=== PATIENT | male | born 1960 | race Caucasian/White ===

== ENCOUNTER → 2018-07-07 11:32 | Outpatient (CLI) | payer OTHER ==
[2010-03-27 07:43] VITALS: BMI 28.4
--- NOTE | ~2018-07-07 | ST ---
PATIENT:CHAPO MORAN MEDICAL RECORD: [id number] SEX: M LOCATION:[facility] ORDER #: ADMISSION DATE: 07/07/18 AGE OF PATIENT: 58 REFERRING PHYSICIAN: INTERPRETING PHYSICIAN: GABBY DA SILVA MD DATE OF SERVICE: 07/07/2018 PROCEDURE: Nuclear stress test. INDICATIONS: Angina, abnormal ECG, coronary artery disease, hypertension, hyperlipidemia. The patient was exercised on standard Real protocol for 5 minutes 30 seconds, terminated due to achieving max target heart rate response with 26 mCi of sestamibi injected at peak stress, 8 mCi were used previously for rest images. FINDINGS: Gated SPECT reveals preserved ejection fraction at 67% with good wall motioning and thickening and brightening throughout all segments. SPECT imaging: Cardiolite was used as myocardial perfusion agent. There is reversibility inferiorly and laterally. This includes the basal, mid, apical, inferior segments as well as apical, lateral, mid lateral, and basal lateral segments. The degree of reversibility is mild. The amount of myocardium involved is moderate to large. OVERALL IMPRESSION: This is an abnormal nuclear stress test, [id number] amount of myocardium, at risk with inducible ischemia, with ejection fraction preserved at 67%. Would proceed with coronary angiography as a followup study. TRANSINT:[id number] Voice Confirmation ID: [id number] DOCUMENT ID: [id number] GABBY DA SILVA MD CC: DEVEN ALFONSO [id number] DICTATION DATE: 07/07/18 170 EMBLEM FUSER TENDER: 07/08/18 0102 DEP CLI 07/07/18 [place] [id number] [place] [id number]
== END | disposition home or self-care (01) ==
LOC: D.HCCARDIO 08:30
PROVIDERS: ATTEND Internal Medicine Interventional Cardiology
DX: I25.10 Atherosclerotic heart disease of native coronary artery without angina pectoris (principal); R93.89 Abnormal findings on diagnostic imaging of other specified body structures; I10 Essential (primary) hypertension; E78.5 Hyperlipidemia, unspecified

== ENCOUNTER 2018-07-21 07:24 | Outpatient (CLI) | payer OTHER ==
--- NOTE | ~2018-07-21 | HEMODYNAMI ---
PATIENT:CHAPO MORAN MEDICAL RECORD: [id number] : 56 LOCATION:[facility] ADMISSION DATE: 07/21/18 Generatedon:07/21/20189:33 Patient name: CHAPO MORAN Patient #: [id number] SSN: : 1960 Date of study: 07/21/2018 Page: Of Hemodynamic Procedure Report Patient Data Patient Demographics Procedure consent was obtained First Name: CHAPO Gender: Male Last Name: LUISA : 1960 [facility] Initial: KATERYNA Age: 58 year(s) Patient #: [id number] Race: Unknown Additional ID: [id number] Contact details Address: [address] [place] [address] State: [place] City: [place] Zip code: [address] Past Medical History Allergies Allergen Reaction Date Comments Reported Other allergy 07/21/2018 iodine Admission Admission Data Admission Date: 07/21/2018 Admission Time: 7:24 Admit Source: Other Lab Results Lab Result Date: 07/21/2018 Lab Result Time: 7:50 Biochemistry Name Units Result Min Max BUN mg/dl 23 --(----)-* 7 18 Creatinine mg/dl 1.1 --(--*-)-- 0.6 1.3 CBC Name Units Result Min Max Hematocrit % 43.7 --(*---)-- 42 54 Hemoglobin g/dl 14.9 --(-*--)-- 13.5 17.5 Procedure Procedure Types Cath Procedure Diagnostic Procedure LHC LHC w/Coronaries FFR/IVUS Intra-Coronary IVUS Initial Procedure Description Procedure Date Procedure Date: 07/21/2018 Procedure Start Time: 9:18 Procedure End Time: 9:32 Procedure Staff Name Function Diego Terry MD Performing Physician Zeeshan Paz RT Monitor Beau Contreras RN Nurse Donna Lee RT Scrub Procedure Data Cath Procedure Fluoroscopy Diagnostic fluoroscopy Total fluoroscopy Time: 4.8 time: 4.8 min min Diagnostic fluoroscopy Total fluoroscopy dose: 781 dose: 781 mGy mGy Contrast Material Contrast Material Type Amount (ml) Isovue 300 56 Entry Location Entry Primary Successful Side Size Upsize Upsize Entry Closure [place] ccessful Closure Location (Fr) 1 (Fr) 2 (Fr) Remarks Device Remarks Radial Right 6 Fr Mechanical artery Short Compression Femoral Right 6 Fr Exoseal artery Short Estimated blood loss: 10 ml Diagnostic catheters Device Type Used For End Catheter Placement DIAGNOSTIC [place] 110cm 5 Procedure Fr catheter ([id number]) Procedure Complications No complications Procedure Medications Medication Administration Route Dosage Oxygen etCO2 Nasal cannula 2 l/min Lidocaine 2% added to field 20 Heparin Flush Bag added to field 2 bags (1000units/500ml NS) 0.9% NaCl I.V. 100 ml/hr Versed I.V. 2 mg Fentanyl I.V. 100 mcg Radial Cocktail I.A. 1 syringe (Verapomil 2mg/Nitro 400mcg/Heparin 1500units) Versed I.V. 0.5 mg Hemodynamics Rest HGB: 14.9 (g/dl) Heart Rate: 67 (bpm) Snapshots Pre Cath Intra NCS Post Cath Vital Signs Time Heart Resp SPO2 etCO2 NIBP (mmHg) Rhythm Pain Sedation Rate (ipm) (%) (mmHg) Status Level (bpm) 9:14:18 68 13 95 36.8 140/89(108) NSR 0 (11) 10(A) , No pain 9:18:30 66 12 93 41.3 137/82(105) NSR 0 (11) 10(A) , No pain 9:22:38 83 14 95 39.1 121/78(94) NSR 0 (11) 9(A) , No pain 9:26:46 81 13 94 40.6 129/74(99) NSR 0 (11) 9(A) , No pain 9:30:54 76 16 94 39.8 127/79(94) NSR 0 (11) 10(A) , No pain Medications Time Medication Route Dose Verified Delivered Reason Notes Effectiveness by by 9:15:47 Oxygen etCO2 2 l/min Diego Yanez used for Nasal Harrison Contreras tracer lathe set up operator cannula 9:15:54 Lidocaine 2% added 20ml Diego Cortez for local to vial Harrison Terry MD anesthetic field 9:15:59 Heparin Flush added 2 bags Diego Cortez used for Bag to Harrison Terry MD procedure (1000units/500ml field NS) 9:16:07 0.9% NaCl I.V. 100 Diego Yanez Per ml/hr Harrison Contreras RN physician 9:16:16 Versed I.V. 2 mg Diego Yanez for sedation Harrison Contreras RN 9:16:21 Fentanyl I.V. 100 mcg Diego Yanez for sedation Harrison Contreras RN 9:18:27 Radial Cocktail I.A. 1 Diego Cortez for (Verapomil syringe Harrison Terry MD vasodilation 2mg/Nitro 400mcg/Heparin 1500units) 9:27:59 Versed I.V. 0.5 mg Diego Cortez for sedation Harrison Terry MD Procedure Log Time Note 8:35:19 Informed consent obtained and on chart 8:35:22 Admit Source: Other 8:35:26 Beau Contreras RN sent for patient. Start room use. 8:35:31 Diagnostic Cath status Elective 8:35:32 Time tracking: Regular hours (M-F 7:00 - 5:00) 8:35:35 Plan of Care:Hemodynamics will remain stable., Cardiac rhythm will remain stable., Comfort level will be maintained., Respiratory function will remain adequate., Patient/ family verbilizes understanding of procedure., Procedure tolerated without complication., Recovers from procedure without complications.. 8:38:12 Lab Result : BUN 23 mg/dl 8:38:12 Lab Result : Creatinine 1.1 mg/dl 8:38:12 Lab Result : Hemoglobin 14.9 g/dl 8:38:12 Lab Result : Hematocrit 43.7 % 8:38:14 Lab results completed and on chart. 8:47:15 Patient received from Pre/Post Procedure Room to CCL 2 Alert and oriented. Tansferred to table in Supine position. 8:47:17 Warm blankets applied, and michelle hugger turned on for patient comfort. 8:47:17 Correct patient and procedure confirmed by team. 8:47:18 ECG and BP/O2 sat monitors applied to patient. 8:47:20 Pre-procedure instructions explained to patient. 8:47:20 Pre-op teaching completed and patient verbalized understanding. 8:47:22 Family in waiting room. 9:13:11 Vital chart was started 9:13:12 Baseline sample Acquired. 9:13:15 Rhythm: sinus rhythm 9:13:37 Full Disclosure recording started 9:13:48 H&P Date Dictated: 07/02/2018 Within 30 days and on chart., H&P Addendum completed by physician on day of procedure. (MUST COMPLETE FOR ALL OUTPATIENTS). 9:14:02 Patient NPO since Midnight. 9:14:11 Patient allergic to Other allergyiodine 9:14:12 Is the patient allergic to Iodine/contrast media? Yes. 9:14:13 Was the patient premedicated? Yes 9:14:14 Is patient on blood thinner?Yes 9:14:18 ACC The patient was administered the following blood thiners within the last 24 hours: ACCPlavix 9:14:19 Patient diabetic? No. 9:14:21 Previous problem with sedation/anesthesia? No ? 9:14:22 Snore? Yes 9:14:23 Sleep apnea? No 9:14:27 Opens mouth fully? Yes 9:14:28 Sticks out tongue? Yes 9:14:30 Airway obstruction? No ? 9:14:31 Dentures? No ? 9:14:35 Pre procedure: right dorsailis pedis pulse 2+ Normal; easily identifiable; not easily obliterated 9:14:37 Modified Mario's test Ulnar < 7 seconds 9:14:38 Patient pain scale 0/10 ?. 9:14:46 IV left hand D/C'd due to infiltration. 9:14:55 IV Extension Set opened to sterile field. 9:14:56 IV CATHETER 22g opened to sterile field. 9:15:06 IV started by Beau Contreras RN inright antecubital with a 22 gauge IV catheter with 0.9% NaCl at KVO. 9:15:10 Right Radial & Right Groin area was prepped with chlora-prep and draped in sterile fashion 9:15:11 Alarms reviewed by R. N. 9:15:11 Sharps counted by scrub and verified by R.N. 9:15:13 Use device set Radial Dx or PCI 9:15:14 ACIST Syringe (42917) opened to sterile field. 9:15:15 Medline Cath Pack ([id number]) opened to sterile field. 9:15:15 Bag Decanter (2002) opened to sterile field. 9:15:16 DIAGNOSTIC WIRE .035 260cm J wire (251765) opened to sterile field. 9:15:16 ACIST Hand Control (79270) opened to sterile field. 9:15:17 ACIST Manifold (37742) opened to sterile field. 9:15:17 Tegaderm 4 x 4 (1626W) opened to sterile field. 9:15:17 MBrace Wrist Support ([id number]) opened to sterile field. 9:15:18 SHEATH 6FR Slender (82-1060) opened to sterile field. 9:15: Physician arrived 9:: --------ALL STOP TIME OUT------ :: Final Timeout: patient, procedure, and site verified with staff and physician. All members of the team are in agreement. 9:15:29 Right Radial & Right Groin site verified by team. 9:15:31 Maximum allowable Isovue 300 dose 300ml. Physician notified. (300ml for normal creatinines. For patients with creatinine of 1.7 or higher multiply weight(kg) x 5 divided by creatinine.) 9:15:34 Fire Safety Assessment: A--An alcohol-based skin anteseptic being used preoperatively., C--Open oxygen or nitrous oxide is being used., D--An ESU, laser, or fiber-optic light is being used. 9:15:36 Physical assessment completed. ASA score P 2 - A patient with mild systemic disease as per Diego Terry MD. 9:15:39 Sedation plan: IV Moderate Sedation Medication:Versed, Fentanyl 9:15:47 Oxygen 2 l/min etCO2 Nasal cannula was administered by Beau Contreras RN; used for procedure; 9:15:54 Lidocaine 2% 20ml vial added to field was administered by Diego Terry MD; for local anesthetic; 9:15:59 Heparin Flush Bag (1000units/500ml NS) 2 bags added to field was administered by Diego Terry MD; used for procedure; 9:16:07 0.9% NaCl 100 ml/hr I.V. was administered by Beau Contreras RN; Per physician; 9:16:16 Versed 2 mg I.V. was administered by Beau Contreras RN; for sedation; 9:16:21 Fentanyl 100 mcg I.V. was administered by Beau Contreras RN; for sedation; 9:18:17 Procedure started. 9:18:21 Local anesthetic to right radial artery with Lidocaine 2% by Diego Terry MD.INITIAL ACCESS ONLY 9:18:27 Radial Cocktail (Verapomil 2mg/Nitro 400mcg/Heparin 1500units) 1 syringe I.A. was administered by Diego Terry MD; for vasodilation; ::27 A 6 Fr Short sheath was inserted into the Right Radial artery 9:19:32 Zero performed for pressure channel P1 9:20:24 A DIAGNOSTIC [place] 110cm 5 Fr catheter (064649) was advanced over the wire and used for Procedure. 9::27 LV gram done using CALDERON 9:: Injector settings: Ml/sec: 5, Volume: 15, 9:20:30 LV hemodynamics recorded. 9:20:33 EF : 60 % 9:20:34 RCA angiography performed. 9:22:06 Catheter exchanged over wire. 9:22:17 GUIDE 6FR XBLAD 3.5 catheter ([id number]) opened to sterile field. 9:22:28 6 Fr XBLAD 3.5 guide catheter was inserted over the wire 9:23:23 SHEATH 6FR [place] (PDZ806) opened to sterile field. 9:23:56 Guide Catheter removed. unable to cannulate vessel. 9:24:04 MOVING TO FEMORAL APPROACH. 9:24:10 Local anesthetic to right femoral artery with Lidocaine 2% by Diego Terry MD.ADDITIONAL ACCESS 9:24:17 A 6 Fr Short sheath was inserted into the Right Femoral artery 9:24:24 6 Fr XBLAD 3.5 guide catheter was inserted over the wire 9:25:25 LCA angiography performed. 9:26:25 INFLATOR Merit BasixCompak (ZN0229) opened to sterile field. 9:26:26 CHOICE PT Extra Support 182cm wire (7287717V1) opened to sterile field. 9:26:26 [place] IVUS Catheter (64868N) opened to sterile field. 9:27:17 CHOICE PT ES wire advanced. 9:27:18 Wire advanced across lesion. 9:27:20 IVUS catheter advanced over wire. 9:27:59 Versed 0.5 mg I.V. was administered by Diego Terry MD; for sedation; 9:29:22 IVUS pass to LAD lesion performed. 9:: IVUS catheter removed over wire. 9:: Wire removed. 9:: Guide catheter removed. 9:29:30 TR BAND Standard (ITE19ZAU) opened to sterile field. 9:29:35 EXOSEAL 6Fr (EX600) opened to sterile field. 9::42 Sheath removed intact; hemostasis achieved with Exoseal to the Right Femoral artery. 9::47 Sheath removed intact; hemostasis achieved with Mechanical Compression to the Right Radial artery. 9:29:49 Procedure ended.(Physican Out) 9:31:05 Fluoroscopy time 04.80 minutes. 9:31:13 Contrast amount:Isovue 300 56ml. 9:: Fluoroscopy dose: 781 mGy 9:: Flurop Dose total: 781 9:31:30 Sharps counted by scrub and verified by R.N. 9:31:32 TR band inflated with 12cc of air. 9:31:33 Insertion/operative site no bleeding no hematoma. 9:31:36 Post-op/insertion site Right Femoral artery dressed using a 4 x 4 and Tegaderm. 9:31:39 Post right femoral artery:stable, soft, clean and dry 9:31:40 Post Procedure Pulses reassessed and unchanged 9::42 Post-procedure physical assessment completed. ASA score P 2 - A patient with mild systemic disease as per Diego Terry MD. 9:31:44 Post procedure rhythm: unchanged. 9:31:46 Estimated blood loss: 10 ml 9:31:47 Post procedure instruction explained to patient.Patient verbalizes understanding. 9:31:47 Patient needs reinforcement of post procedure teaching. 9:32:02 Procedure type changed to Cath procedure, Diagnostic procedure, LHC, LHC w/Coronaries, FFR/IVUS, Intra-Coronary IVUS Initial 9:32:29 Procedure and supply charges have been captured, reviewed, submitted and are correct. 9:32:31 Procedure Complication : No complications 9:32:33 Vital chart was stopped 9:32:33 See physician's report for complete and final results. 9:32:35 Report given to Pre/Post Procedure Room. 9:32:37 Patient transfered to Pre/Post Procedure Room with Stretcher. 9:32:39 Procedure ended. 9:32:39 Full Disclosure recording stopped 9:32:43 End room use (Document Last) Device Usage Item Name Manufacture Quantity Catalog Number Hospital Part Current Minim al Lot# / Charge Number Stock Stock Serial# Code IV Hospira 1 77985-56 323398 50347 405545 5 Extension Set IV CATHETER B. Silva 1 [id number] 645374 537834 465543 5 22g ACIST Acist 1 19867 835309 421336 166447 20 Syringe Medical (46173) Systems Inc Medline Medline 1 [id number] 717171 02962 681373 5 Cath Pack ([id number]) Bag Microtek 1 2001S 419564 00904 033536 5 Decanter Medical Inc. () DIAGNOSTIC St Darren 1 742758 564408 865600 577479 30 WIRE .035 260cm J wire (814997) ACIST Hand Acist 1 44553 604115 955245 727449 5 Control Medical (52658) Systems Inc ACIST Acist 1 65936 995496 362705 219047 5 Manifold Medical (39758) Systems Inc Tegaderm 4 3M 1 1626W 135890 091622 997831 5 x 4 (1626W) MBrace Advanced 1 140-0250-00 981924 82019 725524 5 Wrist Vascular Support Dynamics ([id number]) SHEATH 6FR Terumo 1 [id number] 550227 124160 495481 5 Slender (80-1060) DIAGNOSTIC Terumo 1 40-5013 662489 120277 229334 5 [place] 110cm 5 Fr catheter (795823) GUIDE 6FR Cardinal 1 [id number] 929284 093933 894802 10 XBLAD 3.5 Health catheter (86186530) SHEATH 6FR Terumo 1 LEX690 074685 181918 267523 40 [place] (MEY617) INFLATOR Merit 1 GT6829 441122 289698 309270 15 [facility] Medical BasixCompak (DJ7995) CHOICE PT [place] 1 [id number] 120950 717318 831714 5 Extra Scientific Support 182cm wire (5936934S9) [place] 1 23406T 167243 668699 567331 8 [place] Eag[place] IVUS Catheter (17201Z) TR BAND Terumo 1 [id number] 395574 397380 962476 40 Standard (XZV76HHN) EXOSEAL 6Fr Cardinal 1 EX600 908693 269473 308260 10 (EX600) Health Signature Audit [place] Stage Time Signature Unsigned Intra-Procedure 07/21/2018 Zeeshan Paz 9:33:26 AM RT(R) Signatures Monitor : Zeeshan Paz RT Signature : Date : Time : [place] [id number] [place] [address]
[2018-07-21] MEDS ORDERED: BAYER CHEWABLE81 MG PO (07:29)
[2018-07-21] MEDS ORDERED: FLOMAX0.4 MG PO (07:29)
[2018-07-21] MEDS ORDERED: LIPITOR80 MG PO (07:29)
[2018-07-21] MEDS ORDERED: PLAVIX75 MG PO (07:29)
[2018-07-21] MEDS ORDERED: BENICAR40 MG PO (07:30)
[2018-07-21] MEDS ORDERED: ELAVIL25 MG PO (07:30)
[2018-07-21 07:45] VITALS: BP 106/73; BMI 26.6
[2018-07-21 08:10] LABS: BASOPHILS 0 % (0-2); EOSINOPHILS 0 % (0-7); HEMATOCRIT 43.7 % (42.0-54.0); HEMOGLOBIN 14.9 g/dL (13.5-17.5); IMMATURE GRANULOCYTES 0.5 % (0-5); LYMPHOCYTES 10.2 % (15-50); MCH 31.2 pg (26.0-34.0); MCHC 34.1 g/dL (31.0-37.0); MCV 91.4 fL (80.0-100.0); MEAN PLATELET VOLUME 9.5 fL (7.4-10.4); MONOCYTES 0.9 % (2-11); NEUTROPHILS 88.4 % (40-80); RBC 4.78 10x6/uL (4.20-6.10); RDW 12.3 % (11.5-14.5); WBC 6.6 10x3/uL (4.8-10.8)
[2018-07-21 08:11] LABS: PLATELET COUNT 236 10x3/uL (130-400)
[2018-07-21 08:19] LABS: ANION GAP 14.9 mmol/L (8-16); CALCIUM 9.4 mg/dL (8.5-10.1); CREATININE - SERUM 1.1 mg/dL (0.6-1.3); POTASSIUM - SERUM 3.9 mmol/L (3.5-5.1)
--- NOTE | 2018-07-23 14:39 | OP ---
PATIENT NAME: CHAPO MORAN MEDICAL RECORD: [id number] :56 LOCATION:[facility] ADMISSION DATE: SURGEON: GABBY DA SILVA MD DATE OF OPERATION: 07/21/2018 PROCEDURES: 1. Left heart catheterization. 2. Selective coronary angiography. 3. Left ventriculogram. 4. Intravascular ultrasound. INDICATION: Chest pain compatible with angina, coronary artery disease, and previous cardiac stenting. PROCEDURE IN DETAIL: After informed consent was obtained and after a detailed description of the risks, benefits as well as alternative therapies, the patient elected to proceed with angiogram and heart catheterization. The right femoral area was prepped and draped in normal sterile fashion. Right femoral artery was cannulated via modified Seldinger technique with placement of 6-Cypriot sheath. All catheters exchanged through this sheath. FINDINGS: Left ventriculogram was performed in standard 30-degree CALDERON view, reveals good cardiac wall motion throughout all segments. Overall ejection fraction estimated 60%. SELECTIVE CORONARY ANGIOGRAPHY: 1. Left main is with no significant angiographic disease. 2. Left anterior descending has previously placed AngioJet. Intravascular ultrasound reveals that there is no significant new stenosis. No disease elsewise throughout the stented area. 3. Left circumflex has previously placed stent that is widely patent with no significant restenosis. No disease elsewise throughout the circumflex or its branches. 4. Right coronary artery has moderate irregularities, but no flow-limiting stenosis. OVERALL IMPRESSION: Wide patency of the previously placed stents, no new disease. Continue medical management of the coronary artery disease and cardiac risk factors. TRANSINT:[id number] Voice Confirmation ID: [id number] DOCUMENT ID: [id number] GABBY DA SILVA MD at 1439 CC: [id number] DICTATION DATE: 07/21/18 0932 ENTRY LEVEL RECEPTIONIST: 07/21/18 1517 [facility] CLI 07/21/18 [place] [id number] [place] [id number]
== END 2018-07-21 12:00 | disposition home or self-care (01) ==
LOC: D.CATH 07:24
PROVIDERS: Internal Medicine Interventional Cardiology
DX: I25.119 Atherosclerotic heart disease of native coronary artery with unspecified angina pectoris (principal); Z95.5 Presence of coronary angioplasty implant and graft; Z01.812 Encounter for preprocedural laboratory examination